=== PATIENT | male | born 1950 | race Caucasian/White ===

== ENCOUNTER 2019-01-18 15:01 | Emergency (ER) | payer MEDICARE, SELFPAY ==
[2019-01-18 15:11] VITALS: BP 167/83; PULSE 68; RESP 15; TEMP 35.8; O2SAT 98; BMI 28.7
[2019-01-18 16:18] LABS: RBC Urine 1-5/HPF (0-5/HPF); WBC Urine 10-30/HPF (0-5/HPF)
[2019-01-18 16:19] LABS: Amorphous Sediment Urine 2+; Bacteria Urine Few (2-10); Culture Indicated Urine Specimen Cultured; Hyaline Casts Urine 0-1/LPF; Mucus Urine 1+ (Negative); Squamous Epithelial Cell Urine 0-1 /HPF (0-5/HPF)
--- NOTE | 2019-01-18 16:24 | ED.MALEGU ---
HPI - Male Genitourinary <KIMBERLY Knutson - Last Filed: 01/19/19 01:31> General Chief complaint: Urogenital-Male Stated complaint: Having groin pain, nausea Time Seen by Provider: 01/18/19 15:12 Source: patient and family Mode of arrival: ambulatory Limitations: no limitations History of Present Illness HPI Narrative: This is a pleasant 69-year-old male, nonsmoker, presents with his spouse to ED with a chief complaint of right groin discomfort. The patient reports has history of several kidneys stones in size of 2 mm in the past and has been followed with [facility] urologist. He had lithotripsy procedure done for the kidney stone. He reports the right groin discomfort has been going on for last 9 months intermittently. However, today he noticed the pain became sharper and more severe with nausea while he was walking around [place] [employer]. The pain then subsided and recurred a couple more times. However, at this time the pain as significantly decreased and rates it as 1/10. The patient denies urinary symptoms, fever, chills, vomiting, decreased appetite, any peritoneal signs, swelling in right groin, pain in the scrotum, redness/swelling to his scrotum or testes. He had taken ibuprofen before coming in to ER. The patient reports he currently is making arrangements to follow with neurologist for his prolonged right groin pain. He had several CT scan done for his kidney stones in the last 1 was done about 2 months ago with blood test including kidney function test by his primary care physician at [facility]. Related Data Previous Rx's Medication Instructions Recorded levofloxacin [Levaquin] 750 mg PO DAILY #4 tab 01/18/19 Allergies Allergy/AdvReac Type Severity Reaction Status Date / Time No Known Drug Allergies Allergy Verified 01/18/19 15:11 Review of Systems <KIMBERLY Knutson - Last Filed: 01/19/19 01:31> Review of Systems General: The HPI HEENT: Denies sinus pain, ear pain, sore throat, difficulty swallowing, dizziness. Respiratory: Denies dyspnea, cough, wheezing, hemoptysis, sputum. Cardiovascular: Denies chest pain, palpitations, orthopnea, edema. Gastrointestinal: See HPI : See HPI Musculoskeletal: Denies weakness, joint pain or bony pain. Skin: Denies rash, skin lesions, or other. Neurologic: Denies weakness, headache, numbness, change in speech, confusion, seizures, incoordination. Psychiatric: No concerning psychosocial issues. 12-point review of systems is negative except for those stated above. PFSH <KIMBERLY Knutson - Last Filed: 01/19/19 01:31> Medical History Kidney stone (Acute) Surgical History (Updated 01/19/19 @ 01:17 by KIMBERLY Knutson) H/O lithotripsy (Acute) Social History (Updated 01/19/19 @ 01:18 by KIMBERLY Knutson) Smoking Status: Never smoker substance use type: marijuana Social History (Updated 01/19/19 @ 01:18 by KIMBERLY Knutson) Smoking Status: Never smoker substance use type: marijuana Exam <KIMBERLY Knutson - Last Filed: 01/19/19 01:31> Narrative Exam Narrative: GEN: Alert, oriented x 3, well appearing and nourished, and in no acute distress. Head: Normal cephalic, atraumatic. No scalp or temporal tenderness, palpable mass or rash. EYES: Pupils are equal, round, and reactive to light and accommodation. Extraocular muscles are intact bilaterally. There is no subconjunctival hemorrhage, exudate and sclera non-icteric. ENT: Nose without bleeding, purulent discharge. Mucous membrane moist, no mucosal lesion. Throat without erythema, tonsillar hypertrophy or exudate. Uvula in midline, airway patent. Neck: Trachea in midline. No JVD, non-tender without lymphadenopathy. No masses or thyroid megaly. Supple, non-tender and meningeal signs. CARDIAC: Normal regular rate and rhythm without murmurs, gallops, or rubs. No chest wall tenderness. No peripheral edema, cyanosis or pallor. Capillary refill is less than 2 seconds. RESPIRATORY: Lungs are cleat to auscultate bilaterally. No cough, wheezes, rales, or rhonchi. No stridor, respiratory distress, increase work of breathing, or accessary muscle used. ABD: Abdomen soft, nontender and non-distended. No guarding or rebound tenderness to palpate. Bowel sounds are normal in all 4 quadrants. There is no palpable masses, groin bulges or organomegaly. EXT: Full painless ROM of all extremities with no loss of sensation, strength, effusion or edema. SKIN: Warm, dry, normal color for patient. No erythema, lesions or rash. BACK: Nontender without deformity or crepitance. No flank tenderness. NEUROLOGICAL: Alert and oriented to place, time and person. Sensation and motor function intact bilaterally. No facial droops, dysphasia. PSYCHIATRIC: Good judgement and reason, without hallucinations, abnormal affect or abnormal behaviors during the examination. Initial Vital Signs Initial Vital Signs: Vital Signs Temperature 96.5 F L 01/18/19 15:11 Pulse Rate 68 01/18/19 15:11 Respiratory Rate 15 01/18/19 15:11 Blood Pressure 167/83 H 01/18/19 15:11 Pulse Oximetry 98 01/18/19 15:11 <Leslie Rosenberg DO - Last Filed: 01/19/19 08:40> Initial Vital Signs Initial Vital Signs: Vital Signs Temperature 96.5 F L 01/18/19 15:11 Pulse Rate 68 01/18/19 15:11 Respiratory Rate 15 01/18/19 15:11 Blood Pressure 167/83 H 01/18/19 15:11 Pulse Oximetry 98 01/18/19 15:11 Course <KIMBERLY Knutson - Last Filed: 01/19/19 01:31> Orders Ordered: Discontinued Medications Levofloxacin (Levaquin) 750 mg PO NOW ONE Stop: 01/18/19 16:30 Last Admin: 01/18/19 16:48 Dose: 750 mg Vital Signs - 8 hr 01/18/19 15:11 Temperature 96.5 F L Pulse Rate 68 Respiratory Rate 15 Blood Pressure 167/83 H Pulse Oximetry 98 <Leslie Rosenberg DO - Last Filed: 01/19/19 08:40> Orders Ordered: Discontinued Medications Levofloxacin (Levaquin) 750 mg PO NOW ONE Stop: 01/18/19 16:30 Last Admin: 01/18/19 16:48 Dose: 750 mg Vital Signs - 8 hr 01/18/19 15:11 Temperature 96.5 F L Pulse Rate 68 Respiratory Rate 15 Blood Pressure 167/83 H Pulse Oximetry 98 MDM - Male Genitourinary <KIMBERLY Knutson - Last Filed: 01/19/19 01:31> Differential Diagnosis Likely urinary tract infection and other (kidney stone, appendicitis, inguinal hernia) Medical Records Attestation: I reviewed the patient's medical records. Lab Data Attestation: I reviewed the patient's lab results. Lab Results 01/18/19 Range/Units 16:00 Urine RBC 1-5/hpf (0-5/HPF) Urine WBC 10-30/hpf H (0-5/HPF) Ur Squamous Epith Cells 0-1 /hpf (0-5/HPF) Amorphous Sediment 2+ Urine Bacteria Few (2-10) H (None) Hyaline Casts 0-1/lpf (None) Urine Mucus 1+ H (Negative) Ur Culture Indicated? Specimen cultured Urine Dip Bedside Urine Glucose Negative Bedside Urine Bilirubin + 1 Bedside Urine Ketone +/- 5 Urine Specific Kegley 1.030 Bedside Urine Occult Blood + Bedside Urine pH 5.5 Bedside Urine Protein ++ 100 Bedside Urine Urobilinogen +/- 1mg Bedside Urine Nitrite - Negative Bedside Urine Leukocytes +++ [address] [facility] Narrative Medical decision making narrative: This is a pleasant 69 year old gentleman who presents with his spouse to ED with chief complaint of right groin pain and nausea. He has been having this right groin pain for last 9 months but today the severity and pain character was more intense. Patient has history of several kidney stones with elective lithotripsy. He reports his kidney stone size was about 2 mm. He denies prior urinary symptoms such as urgency,frequency, hematuria and burning. The patient was concerned if this pain is due to appendicitis. The patient did not exhibit peritoneal signs, rebound tenderness, decreased appetite, fever, chills. The UA was obtained and it showed occult blood, urine bilirubin, ketones, protein, and many leukocytes esterase. The microscopic urine test shows urine WBC, bacteria and mucus and being cultured at this time. The patient defers blood test for CBC and chemistry including kidney function test and also CT test for kidney stone. The patient states that he had recent blood tests done as well as CT scan and he will follow with his primary care physician for re-evaluation and to follow with urologist as planned. We discussed red flag symptoms for appendicitis such as increasing abdominal pain localized to right lower quadrant, fever, chills, nausea, vomiting, decreased appetite. Also he was to monitor bulging in the right groin area for hernia, increasing scrotal or testicular pain/swelling, redness and return to ED for re-evaluation. The patient was medicated with Levaquin 750 mg p.o. prior to leaving the ER and prescription for 4 more days had been provided. Black box warning for tendinitis was reviewed with the patient. The patient was informed will be contacted if the medication needs change her urine culture. All questions were answered and the patient and spouse agree with the treatment plan. <Leslie Walker Rosenberg, DO - Last Filed: 01/19/19 08:40> Lab Data Lab Results 01/18/19 Range/Units 16:00 Urine RBC 1-5/hpf (0-5/HPF) Urine WBC 10-30/hpf H (0-5/HPF) Ur Squamous Epith Cells 0-1 /hpf (0-5/HPF) Amorphous Sediment 2+ Urine Bacteria Few (2-10) H (None) Hyaline Casts 0-1/lpf (None) Urine Mucus 1+ H (Negative) Ur Culture Indicated? Specimen cultured Urine Dip Bedside Urine Glucose Negative Bedside Urine Bilirubin + 1 Bedside Urine Ketone +/- 5 Urine Specific Kegley 1.030 Bedside Urine Occult Blood + Bedside Urine pH 5.5 Bedside Urine Protein ++ 100 Bedside Urine Urobilinogen +/- 1mg Bedside Urine Nitrite - Negative Bedside Urine Leukocytes +++ 500 Esterase Discharge Plan Departure Patient Disposition: Home Clinical Impression: Urinary tract infection Discharge Date/Time: 01/18/19 17:04 Interventions: ED Discharge Assessment Last Done: 01/18/19 17:04 Instructions: DI for Urinary Tract Infection (UTI) Activity Restrictions/Additional Instructions: You have been diagnosed with [bladder infection. Your urine test indicates WBC in urine and a few bacteria. Your urine is being cultured at this time and you'll be contacted if there medication changes is needed]. What to do: *Take your medications as directed. It should be a once a day dose. As we discussed, there is a tendonitis to monitor as a black box warning. *Follow up with your primary care provider in 2-3 days, call for an appointment. Let them know you were seen in the ED and that we asked you to be seen in follow up. As you deferred CT and blood test, it is very important to f/u with your PCP and urologist. *Return to ED if you have any new, worsening, or concerning symptoms, such as [worsening pain, swelling in your right groin area, unable to tolerate fluid, fever, chills, chest pain, breathing difficulty, dizziness, unable to void, any acute concerns]. Prescriptions: New levofloxacin [Levaquin] 750 mg tablet 750 mg PO DAILY Qty: 4 RF: 0 <Leslie Rosenberg DO - Last Filed: 01/19/19 08:40> Cosign ED Attending Cosignature Attestation: I was immediately available in the department for consultation. This documentation has been reviewed and I agree with assessment and plan. Supervised by Leslie Rosenberg DO
[2019-01-18] MEDS: levoFLOXacin 250 MG TABLET 750 MG PO (16:48)
[2019-01-18 16:49] VITALS: BP 152/81; PULSE 58; RESP 15; O2SAT 95
== END 2019-01-18 17:04 | disposition home or self-care (01) ==
PROVIDERS: Emergency Provider Nurse Practitioner Family; PCP Naturopath
DX: N39.0 Urinary tract infection, site not specified (principal)
CPT/HCPCS: 81003; 81015; 87086; 99283

== ENCOUNTER 2019-07-10 10:24 | Day surgery (SDC) | payer MEDICARE, SELFPAY ==
[2019-07-10] VITALS (7 sets, daily range): BP systolic 119–156; BP diastolic 72–89; PULSE 62–67; RESP 12–17; TEMP 36.4–36.6; O2SAT 94–100; BMI 27.8
[2019-07-10] MEDS: LACTATED RINGERS 1,000 ML 42 ML IV (10:38)
--- NOTE | 2019-07-10 10:58 | PM.PREOP ---
Pre-operative Note Interval Note History & Physical reviewed/Exam performed by Physician: Yes Changes to H&P: No H&P completed within 30 days and has changed as indicated here:: History and physical examination on file.
[2019-07-10] MEDS: CEFAZOLIN 1 GM/50 ML FROZ.PIGGY IV (11:35)
--- NOTE | 2019-07-10 11:55 | SUR.OPER ---
Lithotomy on padded OR bed, head on pillow, arms secured on padded arm boards at <90 degrees abduction. Legs secured in padded yellow fins stirrups.
--- NOTE | 2019-07-10 12:00 | SUR.OPER ---
GLASSES TO PACU IN LABELED BAG WITH PATIENT
--- NOTE | 2019-07-10 12:25 | PM.OP.1 ---
Operative Date/Time/Diagnoses Date of procedure: 07/10/19 Time of procedure: 12:25 Pre-op diagnosis: Retained right ureter Right renal calculi Post-op diagnosis: same Procedure & Clinicians Procedure: 1. Cystoscopy. 2. Right ureteral stent removal. 3. Removal bladder calculi. Same procedure as scheduled: No Indications: 1. Retained right ureteral stent. 2. Bladder calculi. Surgeon: Haim Monk Click Yes if Unassisted: Yes Anesthesia Type: General Operative Notes Findings: 1. Retained right ureteral stent. 2. Multiple fragments of calculi at bladder floor. Closure Type: not applicable Specimen(s): other (Urinary tract calculi from bladder floor.) Estimated Blood Loss (mL): 0 Blood products transfused: none Tourniquet time (min): 0 Procedure in detail: The patient was positioned supine and administered general anesthesia. The lower abdomen genitalia and groin were then prepped and draped in sterile fashion and he was positioned in semi lithotomy. A 22 Amharic panendoscope was then passed in the lower urinary tract. Multiple fragments of calculi were irrigated from the bladder that had been lying dependently in its base. The stone fragments were sent as specimen for crystallographic analysis. Using a foreign body grasper the stent was then engaged and removed without incident. The patient was then repositioned in supine, was awakened, and transferred to a gurney in stable condition. He was then transported to recovery in stable condition. Post-operative Condition: stable Disposition: PACU Plan for aftercare: Discharge home. Post operative appointment 6 weeks with KUB and metabolic stone risk evaluation.
[2019-07-10] MEDS: FUROSEMIDE 40 MG/4 ML VIAL 20 MG IV (12:29)
[2019-07-14 09:37] LABS: Specimen Source Right Ureter
== END 2019-07-10 13:10 | disposition home or self-care (01) ==
PROVIDERS: PCP Naturopath; Visit Provider Specialist
PROC: (CPT 52310; principal; 2019-07-10 11:15)
DX: N21.0 Calculus in bladder (principal); Z46.6 Encounter for fitting and adjustment of urinary device
CPT/HCPCS: 52310; 82365; J1940; J3010

== ENCOUNTER → 2020-12-29 09:23 | Outpatient (CLI) | payer MEDICARE, SELFPAY ==
[2020-12-29 20:11] LABS: BUN Creatinine Ratio 16.4 (6-22); Blood Urea Nitrogen 20 mg/dL (9-20); Calcium 9.8 mg/dL (8.4-10.2); Carbon Dioxide 26 mmol/L (22-32); Chloride 106 mmol/L (98-107); Estimated Glomerular Filt Rate 58.4 mL/min (>60); Glucose 99 mg/dL (80-110); HEMOLYSIS < 15 (0-50); Potassium 3.9 mmol/L (3.4-5.1); Sodium 139 mmol/L (137-145)
[2020-12-29 20:27] LABS: Creatinine Urine Random 158.6 mg/dL
[2020-12-29 20:33] LABS: Protein (Total) Urine Random < 5 mg/dL (0-12); Protein Creatinine Ratio Urine 0.03 GRAM/24H
== END ==
PROVIDERS: PCP Family Medicine; Visit Provider Student in an Organized Health Care Education/Training Program
DX: N05.0 Unspecified nephritic syndrome with minor glomerular abnormality (principal); R80.9 Proteinuria, unspecified; N05.9 Unspecified nephritic syndrome with unspecified morphologic changes
CPT/HCPCS: 80048; 82570; 84156

== ENCOUNTER → 2021-01-09 12:11 | Outpatient (CLI) | payer MEDICARE, SELFPAY ==
[2021-01-09 21:14] LABS: COVID19 - ORCAS (NP or Nasal) Negative (Negative)
== END ==
PROVIDERS: PCP Family Medicine; Visit Provider Family Medicine
DX: Z20.822 Contact with and (suspected) exposure to COVID-19 (principal)
CPT/HCPCS: U0003

== ENCOUNTER → 2021-09-05 12:03 | Outpatient (CLI) | payer MEDICARE, SELFPAY ==
[2021-09-05 19:10] LABS: Hematocrit 46.9 % (41-53); Hemoglobin 16.5 g/dL (13.5-17.5)
[2021-09-05 19:11] LABS: BUN Creatinine Ratio 15.2 (6-22); Blood Urea Nitrogen 21 mg/dL (9-20); Calcium 9.8 mg/dL (8.4-10.2); Carbon Dioxide 29 mmol/L (22-32); Chloride 105 mmol/L (98-107); Estimated Glomerular Filt Rate 50.5 mL/min (>60); Glucose 107 mg/dL (80-110); HEMOLYSIS < 15 (0-50); Potassium 4.2 mmol/L (3.4-5.1); Sodium 140 mmol/L (137-145)
[2021-09-05 20:08] LABS: Creatinine Urine Random 170.8 mg/dL
[2021-09-05 20:14] LABS: Protein (Total) Urine Random < 5 mg/dL (0-12); Protein Creatinine Ratio Urine 0.02 GRAM/24H
[2021-09-07 08:37] LABS: Parathyroid Hormone Int 49 pg/mL (15-65)
== END ==
PROVIDERS: PCP Family Medicine; Visit Provider Student in an Organized Health Care Education/Training Program
DX: N05.9 Unspecified nephritic syndrome with unspecified morphologic changes (principal); D64.9 Anemia, unspecified; N25.81 Secondary hyperparathyroidism of renal origin; R80.9 Proteinuria, unspecified
CPT/HCPCS: 80048; 82570; 83970; 84156; 85014; 85018

== ENCOUNTER → 2021-11-06 10:07 | Outpatient (CLI) | payer MEDICARE, SELFPAY ==
[2021-11-06 19:09] LABS: Add Manual Diff / Slide Review NO; Basophils Absolute Auto 100 /uL (0-100); Basophils Percent Auto 0.8 % (0-2); Eosinophils Absolute Auto 300 /uL (0-450); Eosinophils Percent Auto 4.1 % (2-4); Hematocrit 47.6 % (41-53); Hemoglobin 16.5 g/dL (13.5-17.5); Lymphocytes Absolute Auto 1900 /uL (1100-4500); Lymphocytes Percent Auto 25.3 % (25-40); Mean Corpuscular HGB Conc 34.7 % (30-36); Mean Corpuscular Hemoglobin 31.3 PG (26-34); Mean Corpuscular Volume 90.3 fL (80-100); Monocytes Absolute Auto 900 /uL (0-900); Monocytes Percent Auto 11.4 % (3-14); Neutrophils Absolute Auto 4400 /uL (1500-7000); Neutrophils Percent Auto 58.4 % (50-75); Platelet Count 184 X10^3/uL (150-400); Red Blood Cell Count 5.27 X10^6/uL (4.5-5.9); Red Cell Distribution Width 14.2 % (11.6-14.8); White Blood Cell Count 7.5 X10^3/uL (4.5-11.0)
[2021-11-06 19:24] LABS: Cholesterol 148 mg/dL (140-199); HDL Cholesterol 54 mg/dL (40-60); LDL Cholesterol Calculated 72 mg/dL (<100); Triglycerides 108 mg/dL (35-150)
[2021-11-06 19:51] LABS: Prostate Specific Antigen Scrn 1.38 ng/mL (0.1-4.0)
== END ==
PROVIDERS: PCP Family Medicine; Visit Provider Family Medicine
DX: I25.810 Atherosclerosis of coronary artery bypass graft(s) without angina pectoris (principal); Z12.5 Encounter for screening for malignant neoplasm of prostate; N18.31 Chronic kidney disease, stage 3a; D63.1 Anemia in chronic kidney disease; E78.00 Pure hypercholesterolemia, unspecified; I10 Essential (primary) hypertension; K22.70 Barrett's esophagus without dysplasia; N40.1 Benign prostatic hyperplasia with lower urinary tract symptoms; R35.1 Nocturia; R55 Syncope and collapse; Z95.1 Presence of aortocoronary bypass graft
CPT/HCPCS: 80061; 85025; G0103

== ENCOUNTER → 2022-05-15 11:42 | Outpatient (CLI) | payer MEDICARE, SELFPAY ==
[2022-05-15 19:32] LABS: Hematocrit 46.7 % (41-53); Hemoglobin 16.2 g/dL (13.5-17.5)
[2022-05-15 19:47] LABS: BUN Creatinine Ratio 15.7 (6-22); Blood Urea Nitrogen 20 mg/dL (9-20); Calcium 9.6 mg/dL (8.4-10.2); Carbon Dioxide 30 mmol/L (22-32); Chloride 105 mmol/L (98-107); Estimated Glomerular Filt Rate 59 mL/min (>60); Glucose 92 mg/dL (80-110); HEMOLYSIS < 15 (0-50); Sodium 145 mmol/L (137-145)
[2022-05-15 19:51] LABS: Creatinine Urine Random 227.5 mg/dL
[2022-05-15 20:08] LABS: Protein (Total) Urine Random < 5 mg/dL (0-12); Protein Creatinine Ratio Urine < 0.02 GRAM/24H
[2022-05-17 06:36] LABS: Parathyroid Hormone Int 37 pg/mL (15-65)
== END ==
PROVIDERS: PCP Family Medicine; Visit Provider Student in an Organized Health Care Education/Training Program
DX: D64.9 Anemia, unspecified (principal); N05.9 Unspecified nephritic syndrome with unspecified morphologic changes; N25.81 Secondary hyperparathyroidism of renal origin; R80.9 Proteinuria, unspecified
CPT/HCPCS: 80048; 82570; 83970; 84156; 85014; 85018

== ENCOUNTER → 2022-06-14 13:33 | Outpatient (CLI) | payer MEDICARE, SELFPAY ==
[2022-06-14 20:19] LABS: TSH w/ Reflex to FT4 0.73 uIU/mL (0.47-4.68)
== END ==
PROVIDERS: PCP Family Medicine; Visit Provider Family Medicine
DX: I10 Essential (primary) hypertension (principal); R55 Syncope and collapse
CPT/HCPCS: 84443

== ENCOUNTER → 2022-11-26 10:54 | Outpatient (CLI) | payer MEDICARE, SELFPAY ==
[2022-11-26 19:50] LABS: Add Manual Diff / Slide Review NO; Basophils Absolute Auto 100 /uL (0-100); Basophils Percent Auto 0.8 % (0-2); Eosinophils Absolute Auto 300 /uL (0-450); Eosinophils Percent Auto 4.2 % (2-4); Hematocrit 48.5 % (41-53); Hemoglobin 16.7 g/dL (13.5-17.5); Lymphocytes Absolute Auto 1900 /uL (1100-4500); Lymphocytes Percent Auto 25.4 % (25-40); Mean Corpuscular HGB Conc 34.5 % (30-36); Mean Corpuscular Hemoglobin 30.6 PG (26-34); Mean Corpuscular Volume 88.7 fL (80-100); Monocytes Absolute Auto 800 /uL (0-900); Monocytes Percent Auto 10.9 % (3-14); Neutrophils Absolute Auto 4500 /uL (1500-7000); Neutrophils Percent Auto 58.7 % (50-75); Platelet Count 200 X10^3/uL (150-400); Red Blood Cell Count 5.46 X10^6/uL (4.5-5.9); Red Cell Distribution Width 14.7 % (11.6-14.8); White Blood Cell Count 7.6 X10^3/uL (4.5-11.0)
[2022-11-26 19:55] LABS: Blood Urea Nitrogen 17 mg/dL (9-20); Calcium 9.3 mg/dL (8.4-10.2); Carbon Dioxide 26 mmol/L (22-32); Chloride 106 mmol/L (98-107); Cholesterol 145 mg/dL (140-199); Glucose 101 mg/dL (80-110); HDL Cholesterol 54 mg/dL (40-60); HEMOLYSIS 16 (0-50); LDL Cholesterol Calculated 69 mg/dL (<100); Potassium 4.4 mmol/L (3.4-5.1); Triglycerides 109 mg/dL (35-150)
[2022-11-26 20:10] LABS: BUN Creatinine Ratio 11.6 (6-22); Estimated Glomerular Filt Rate 50 mL/min (>60); Sodium 141 mmol/L (137-145)
== END ==
PROVIDERS: PCP Family Medicine; Visit Provider Family Medicine
DX: N13.5 Crossing vessel and stricture of ureter without hydronephrosis (principal); N18.31 Chronic kidney disease, stage 3a; D63.1 Anemia in chronic kidney disease; E78.2 Mixed hyperlipidemia; I10 Essential (primary) hypertension; I25.810 Atherosclerosis of coronary artery bypass graft(s) without angina pectoris; Z87.898 Personal history of other specified conditions
CPT/HCPCS: 80048; 80061; 85025

== ENCOUNTER → 2023-03-07 09:31 | Outpatient (CLI) | payer MEDICARE, SELFPAY ==
[2023-03-07 19:55] LABS: Prostate Specific Antigen 2.48 ng/mL (0.10-4.00)
== END ==
PROVIDERS: PCP Family Medicine; Visit Provider Specialist
DX: N40.1 Benign prostatic hyperplasia with lower urinary tract symptoms (principal); R35.1 Nocturia
CPT/HCPCS: 84153

== ENCOUNTER 2023-04-01 06:37 | Day surgery (SDC) | payer MEDICARE, SELFPAY ==
[2023-03-27 12:10] VITALS: BMI 28.7
[2023-04-01] VITALS (7 sets, daily range): BP systolic 120–159; BP diastolic 51–83; PULSE 50–65; RESP 13–21; TEMP 36.2–36.7; O2SAT 93–98; BMI 28.3
[2023-04-01] MEDS: LACTATED RINGERS 1,000 ML 42 ML IV (07:08)
--- NOTE | 2023-04-01 07:38 | PM.PREOP ---
Pre-operative Note Interval Note History & Physical reviewed/Exam performed by Physician: Yes Changes to H&P: No
[2023-04-01] MEDS: ACETAMINOPHEN IV 1,000 MG/100 ML VIAL 400 MG IV (07:39)
--- NOTE | 2023-04-01 07:39 | PM.PREOP ---
Pre-operative Note Interval Note History & Physical reviewed/Exam performed by Physician: Yes Changes to H&P: No
[2023-04-01] MEDS: CEFAZOLIN 2 GM/100 ML PREMIX 100 ML IV (08:00)
--- NOTE | 2023-04-01 08:02 | SUR.OPER ---
Lithotomy on padded OR bed, head on pillow, left arm secured on padded arm board at <90 degrees abduction, right arm padded and tucked. Legs secured in padded yellow fins stirrups.
[2023-04-01] MEDS: LACTATED RINGERS 1,000 ML 100 ML IV (09:58)
--- NOTE | 2023-04-01 10:27 | PM.OP.1 ---
Operative Date/Time/Diagnoses Date of procedure: 04/01/23 Time of procedure: 09:45 Pre-op diagnosis: 1. Bladder calculi (12) 2. Severe lower urinary tract symptoms. Procedure & Clinicians Procedure: 1. Laser cystolitholapaxy. Complexity modifier should be applied to this case as length exceeded 150% of usual. Same procedure as scheduled: Yes Indications: 1. Multiple bladder calculi (12). 2. Severe lower urinary tract symptoms. Surgeon: Haim Monk Click Yes if Unassisted: Yes Anesthesia Type: General Operative Notes Findings: 1. Urethra-normal caliber without annular stricture or lesion. 2. External sphincter coapted with normal overlying urothelium and vascularity. 3. Prostate-moderately obstructing lateral lobe in very high median lobe bar. 4. Bladder-1 to 2+ trabeculation. Normal ureteral orifices bilaterally. Multiple calculi lying dependently in the bladder base. Closure Type: not applicable Specimen(s): other (Stone pumice and fragments) Applied: catheter (18 [place]ankan silicone catheter.) Estimated Blood Loss (mL): 0 Blood products transfused: none Procedure in detail: The patient was positioned in supine and was administered general anesthesia. He was then repositioned in semi lithotomy in the lower abdomen, genitalia, and groin were then prepped and draped in sterile fashion. The 22 [place]ankan laser cystoscope was then passed and lower urinary tract with the findings as described above. A 550 micron laser fiber was selected. The patient and all operating room personnel were fitted with laser safety eyewear. Laser lithotripsy was then commenced. Each individual stone was painstakingly fragmented and then the larger fragments were further treated with laser to a size readily irrigated able from the bladder lumen. The [facility] evacuator was then used to irrigate the almost and fragments. Multiple irrigations and reinspection were undertaken. A few small pieces of pumice were adherent to the urothelium otherwise the stone volume was cleared with hydrostatic means. The bladder was then left partially filled in the laser cystoscope was removed. An 18 [place]an silicone catheter was then advanced in the bladder, the balloon inflated 10 cc and placed to gravity drainage. The patient was then repositioned in supine, was awakened, transferred to [facility], and transported recovery in stable condition. Complications: none Post-operative Condition: stable Disposition: PACU Plan for aftercare: Discharge home.
[2023-04-09 10:22] LABS: Ca oxalate dihydrate 40 % (.); Ca oxalate monohydr 50 % (.); Hydroxyapatite 10 % (.)
== END 2023-04-01 10:49 | disposition home or self-care (01) ==
PROVIDERS: PCP Family Medicine; Referring Provider Specialist; Visit Provider Specialist
PROC: 0TCB8ZZ Extirpation of Matter from Bladder, Via Natural or Artificial Opening Endoscopic (ICD-10-PCS; CPT 52318; principal; 2023-04-01 07:45)
DX: N21.0 Calculus in bladder (principal); N40.1 Benign prostatic hyperplasia with lower urinary tract symptoms; N13.8 Other obstructive and reflux uropathy
CPT/HCPCS: 52318; 82365; J0131; J0690; J1100; J2405; J2704; J3010

== ENCOUNTER → 2023-09-19 13:00 | Outpatient (CLI) | payer MEDICARE, SELFPAY ==
[2023-09-23 19:36] LABS: Fecal Immunochemical Test Negative (Negative)
== END ==
PROVIDERS: PCP Family Medicine; Visit Provider Family Medicine
DX: Z12.11 Encounter for screening for malignant neoplasm of colon (principal)
CPT/HCPCS: 82274

== ENCOUNTER → 2023-10-24 09:26 | Outpatient (CLI) | payer MEDICARE, SELFPAY ==
[2023-10-24 20:26] LABS: BUN Creatinine Ratio 15.3 (6-22); Blood Urea Nitrogen 20 mg/dL (9-20); Calcium 9.5 mg/dL (8.4-10.2); Carbon Dioxide 25 mmol/L (22-32); Chloride 110 mmol/L (98-107); Cholesterol 129 mg/dL (140-199); Estimated Glomerular Filt Rate 57 mL/min (>60); Glucose 103 mg/dL (80-110); HDL Cholesterol 49 mg/dL (40-60); HEMOLYSIS < 15 (0-50); LDL Cholesterol Calculated 56 mg/dL (<100); Potassium 4.2 mmol/L (3.4-5.1); Sodium 143 mmol/L (137-145); Triglycerides 118 mg/dL (35-150)
[2023-10-24 20:54] LABS: Prostate Specific Antigen 1.77 ng/mL (0.10-4.00)
== END ==
PROVIDERS: PCP Family Medicine; Visit Provider Family Medicine
DX: E78.2 Mixed hyperlipidemia (principal); N40.1 Benign prostatic hyperplasia with lower urinary tract symptoms; I12.9 Hypertensive chronic kidney disease with stage 1 through stage 4 chronic kidney disease, or unspecified chronic kidney disease; I25.810 Atherosclerosis of coronary artery bypass graft(s) without angina pectoris; N18.9 Chronic kidney disease, unspecified; D63.1 Anemia in chronic kidney disease; N13.8 Other obstructive and reflux uropathy
CPT/HCPCS: 80048; 80061; 84153

== ENCOUNTER 2023-11-27 08:13 | Day surgery (SDC) | payer MEDICARE, SELFPAY ==
[2023-11-25 12:09] VITALS: BMI 29.2
--- NOTE | 2023-11-27 | PATH_ITS ---
[facility] Accession Number: [id number] No. of containers..01 Tissue . 01 Material submitted: . esophagus, E-G Junction - GE JUNCTION BIOPSY . 01 Diagnosis: GE JUNCTION BIOPSY: Proximal gastric-type glandular mucosa with mild chronic inflammation. No goblet cell metaplasia, dysplasia, or malignancy identified. [facility] 12/03/2023 1516 Local . 01 Electronically signed: . Merrick Powell MD, Pathologist NPI- [id number] . 01 Gross description: . Received in formalin with two patient identifiers and GE junction, are multiple lozano soft tissue fragments aggregating to 0.9 x 0.4 x 0.1 cm. Filtered and submitted entirely in A1. ([id number]) /MRV 12/03/2023 1516 Local . 01 Pathologist provided ICD-10: K20.90 . 01 CPT . 211640 Specimen Comment: A courtesy copy of this report has been sent to [phone] Performed at: [address] [id number] MD Merrick Powell MD Phone: [phone]
--- NOTE | 2023-11-27 07:37 | SUR.PREOP ---
See new order for EKG from Dr Cornejo.
--- NOTE | 2023-11-27 08:46 | P.OP_ITS ---
Operative Date/Time/Diagnoses Date of procedure: 11/27/23 Time of procedure: 08:47 Pre-op diagnosis: Umbilical hernia History of Wilkinson's esophagus Procedure & Clinicians Procedure: Open umbilical hernia repair Esophagogastroduodenoscopy Same procedure as scheduled: Yes Indications: Symptomatic reducible umbilical hernia History of Wilkinson's esophagus Surgeon: Omer Estrada Presentation Designer: Oswaldo Jean Anesthesia Type: General Operative Notes Findings: gastroparesis 4 cm fascial defect Specimen(s): other (GE junction) Estimated Blood Loss (mL): 30 Procedure in detail: Patient was brought to the operating room placed supine on the table. Bilateral lower extremity compression devices were applied. General anesthesia was induced and they were intubated with an endotracheal tube. They received 2 g of Ancef prior to skin incision. They were prepped and draped in sterile fashion. A time-out was performed. A bite block was placed. the scope was inserted into the mouth and advanced through the esophagus and into the stomach. There was a large volume of gastric content within the stomach. The pylorus was intubated and the duodenum was examined to the 2nd portion. The scope was then withdrawn into the stomach and was retroflexed. The stomach was decompressed and scope was withdrawn slowly through the esophagus. The GE junction was biopsied with forceps. The scope was then slowly withdrawn. They were then prepped and draped in sterile fashion. A curvilinear incision was made inferior to the umbilicus. The subcutaneous tissues were divided. The umbilical hernia was identified and the hernia sac was dissected off the umbilical skin and circumferentially off of the fascia defect. The hernia sac was sharply opened and contained viable omentum. The omentum was reduced back into the abdomen. Using blunt dissection I carefully carefully freed the hernia sac from beneath the fascia defect in order to accomodate the mesh. The fascia defect was 4 cm in maximal diameter. A Bard Ventralex ST hernia patch 8 cm was inserted beneath the fascia defect and above the peritoneum in a sublay position. The mesh was anchored in multiple locations using Ethibond suture to the fascia and the fascial defect was closed over the mesh. The umbilical skin was tacked to the subcutaneous tissues and then the remainder of the subcutaneous tissues were reapproximated using 3 0 Vicry,l skin closed with 4 0 Monocryl followed by the application of Dermabond and Steri-Strips. Sponge instrument count at the end of the operation was correct. Patient tolerated procedure well was extubated and transferred to postoperative care unit in stable condition. Complications: none Post-operative Condition: stable Disposition: same day surgery
--- NOTE | 2023-11-27 08:46 | PM.PREOP ---
Pre-operative Note Interval Note History & Physical reviewed/Exam performed by Physician: Yes Changes to H&P: No
[2023-11-27] MEDS: CEFAZOLIN 2 GM/100 ML PREMIX 100 ML IV (08:59)
--- NOTE | 2023-11-27 09:16 | SUR.OPER ---
Supine on padded OR bed, head on pillow, arms secured on padded arm boards at <90 degrees abduction, legs uncrossed, safety belt at thigh, tape over blanket over lower legs.
[2023-11-27] MEDS: BUPIVACAINE 0.25% (PF) VIAL 30 ML INJ (09:25)
[2023-11-27 09:52] VITALS: BP 164/84; PULSE 66; RESP 20; TEMP 36.4; O2SAT 95
[2023-11-27 09:57] VITALS: BP 156/77; PULSE 61; RESP 15; TEMP 36.4; O2SAT 95
[2023-11-27 10:02] VITALS: BP 141/58; PULSE 59; RESP 20; TEMP 36.3; O2SAT 94
[2023-11-27 10:08] VITALS: BP 145/64; PULSE 56; RESP 15; TEMP 36.3; O2SAT 96
== END 2023-11-27 11:06 | disposition home or self-care (01) ==
PROVIDERS: PCP Family Medicine; Referring Provider Surgery; Visit Provider Surgery
PROC: (CPT 49593; principal; 2023-11-27 08:45)
PROC: 0DJ08ZZ Inspection of Upper Intestinal Tract, Via Natural or Artificial Opening Endoscopic (ICD-10-PCS; CPT 43235; 2023-11-27 08:45)
DX: K42.9 Umbilical hernia without obstruction or gangrene (principal); Z87.19 Personal history of other diseases of the digestive system; K21.9 Gastro-esophageal reflux disease without esophagitis; Z95.1 Presence of aortocoronary bypass graft; I25.10 Atherosclerotic heart disease of native coronary artery without angina pectoris; N18.30 Chronic kidney disease, stage 3 unspecified; K20.90 Esophagitis, unspecified without bleeding
CPT/HCPCS: 49593; 43239; 93005; J0330; J0690; J1100; J2405; J2704; J3010

== ENCOUNTER → 2024-08-05 09:25 | Outpatient (CLI) | payer MEDICARE, SELFPAY ==
[2024-08-05 19:24] LABS: Add Manual Diff / Slide Review NO; Basophils Absolute Auto 100 /uL (0-100); Basophils Percent Auto 1.3 % (0-2); Eosinophils Absolute Auto 300 /uL (0-450); Eosinophils Percent Auto 3.9 % (2-4); Hemoglobin 16.6 g/dL (13.5-17.5); Lymphocytes Absolute Auto 2300 /uL (1100-4500); Lymphocytes Percent Auto 28.8 % (25-40); Mean Corpuscular HGB Conc 33.8 % (30-36); Mean Corpuscular Hemoglobin 30.4 PG (26-34); Mean Corpuscular Volume 89.7 fL (80-100); Monocytes Absolute Auto 700 /uL (0-900); Monocytes Percent Auto 8.6 % (3-14); Neutrophils Absolute Auto 4500 /uL (1500-7000); Neutrophils Percent Auto 57.4 % (50-75); Platelet Count 207 X10^3/uL (150-400); Red Blood Cell Count 5.46 X10^6/uL (4.5-5.9); Red Cell Distribution Width 15.1 % (11.6-14.8); White Blood Cell Count 7.8 X10^3/uL (4.5-11.0)
[2024-08-05 19:32] LABS: D Dimer 286 ng/ml (<500)
[2024-08-05 19:40] LABS: Alanine Aminotransferase 35 IU/L (<50); Albumin 4.2 g/dL (3.5-5.0); Albumin Globulin Ratio 1.5 (1.0-2.8); Alkaline Phosphatase 83 U/L (38-126); Aspartate Aminotransferase 36 IU/L (17-59); Bilirubin Total 0.9 mg/dL (0.2-1.3); Blood Urea Nitrogen 20 mg/dL (9-20); Calcium 9.5 mg/dL (8.4-10.2); Carbon Dioxide 24 mmol/L (22-32); Chloride 108 mmol/L (98-107); Cholesterol 151 mg/dL (140-199); Estimated Glomerular Filt Rate 51 mL/min (>60); Globulin 2.8 g/dL (1.7-4.1); Glucose 105 mg/dL (80-110); HDL Cholesterol 48 mg/dL (40-60); HEMOLYSIS 19 (0-50); LDL Cholesterol Calculated 76 mg/dL (<100); Potassium 4.2 mmol/L (3.4-5.1); Sodium 141 mmol/L (137-145); Triglycerides 136 mg/dL (35-150)
== END ==
PROVIDERS: PCP Family Medicine; Visit Provider Family Medicine
DX: I25.810 Atherosclerosis of coronary artery bypass graft(s) without angina pectoris (principal); N18.9 Chronic kidney disease, unspecified; D63.1 Anemia in chronic kidney disease; E78.2 Mixed hyperlipidemia; I10 Essential (primary) hypertension
CPT/HCPCS: 80053; 80061; 85025; 85379

== ENCOUNTER → 2024-08-10 13:40 | Outpatient (CLI) | payer MEDICARE, SELFPAY ==
[2024-08-10 14:57] LABS: Appearance Urine UA CLEAR; Bilirubin Urine UA NEGATIVE (NEGATIVE); Color Urine UA YELLOW; Glucose Urine UA NEGATIVE (Negative); Ketones Urine UA NEGATIVE (NEGATIVE); Leukocyte Esterase Urine UA NEGATIVE (NEGATIVE); Nitrite Urine UA NEGATIVE (Negative); Occult Blood Urine UA NEGATIVE (Negative); Protein Urine UA NEGATIVE (Negative); Specific Gravity Urine UA 1.025 (1.000-1.035); Urobilinogen Urine UA 0.2 E.U./dL (0.2); pH Urine UA 5.5 (4.5-8.0)
[2024-08-10 15:15] LABS: Urine Volume 10mL (spun)
[2024-08-10 15:16] LABS: Bacteria Urine None Seen; Calcium Oxalate Crystals Urine Occasional; Culture Indicated Urine Cult Not Indicated; RBC Urine 1-5/HPF (0-5/HPF); Squamous Epithelial Cell Urine None Seen (0-5/HPF); WBC Urine 1-5/HPF (0-5/HPF)
--- NOTE | 2024-08-11 19:08 | DI.NM.S_ITS ---
DATE OF SERVICE: 08/10/2024 EXERCISE PERFUSION STUDY INDICATION: Syncope with known history of two-vessel bypass surgery in 2020, hypertension. RADIOPHARMACEUTICAL: 26.7 millicuries technetium-99m Myoview IV was injected at stress and 27.5 millicurie technetium-99m Myoview IV was injected at rest. CARDIAC STRESS: The patient underwent exercise perfusion study under the supervision of an attending staff. He walked on Scooter protocol for 6 minutes and 41 seconds, achieved maximum heart rate of 144 which was 100% of target heart rate. Resting blood pressure 140/80 and peak blood pressure 170/92 mmHg. Baseline rhythm was sinus. During stress, nonspecific ST-T changes without any convincing ischemic changes. The patient has frequent PACs without any obvious AFib or ventricular tachycardia. No chest discomfort. Had shortness of breath. Oxygen saturation was more than 95% during exercise. RAW DATA: There is increased subdiaphragmatic activity. GATED STUDY: Resting LV ejection fraction 75% and stress LV ejection fraction 78% without any obvious wall motion abnormalities. Resting end- diastolic volume 115 mL. TID ratio 0.83, which is within normal limits. Lung/heart ratio 0.27, which is within normal limits. MYOCARDIAL PERFUSION SCAN: Stress supine, resting supine, and stress prone images were compared to each other. There is a normal myocardial perfusion. Summed stress score and summed rest score zero. CONCLUSION: This is a normal myocardial perfusion study without any evidence of ischemia or infarction. Summed stress score and summed rest score zero. Fair exercise tolerance. TYE -13%. Normal hemodynamic response. No convincing ischemic EKG changes. Frequent PACs during exercise. No obvious AFib or ventricular tachycardia. Preserved LV function. No angina. Overall, low-risk exercise perfusion study. Dinesh Segal - EUGENIE/kristine/ELIZABETH doc#: [id number]/job#: [id number] dd: 08/11/2024 17:34:00 dt: 08/11/2024 18:35:00 DICTATING MD/COPIES TO: Mai Castañeda MD COPIES MNE: SILVINO;
== END ==
PROVIDERS: PCP Family Medicine; Referring Provider Internal Medicine Cardiovascular Disease; Visit Provider Internal Medicine Cardiovascular Disease
DX: N20.0 Calculus of kidney (principal); R06.02 Shortness of breath
CPT/HCPCS: 78452; 81001; 93017; A9502

== ENCOUNTER → 2024-11-02 10:35 | Outpatient (CLI) | payer MEDICARE, SELFPAY ==
--- NOTE | 2024-11-02 10:37 | DI.CT.S_ITS ---
PROCEDURE: CT ABDOMEN PELVIS W CON INDICATIONS: abdominal pain in a pateint with history renal lithiasis TECHNIQUE: After the administration of intravenous contrast, axial sections acquired from the lung bases to the pubic symphysis. Coronal and sagittal reformats were performed. For radiation dose reduction, the following was used: automated exposure control, adjustment of mA and/or kV according to patient size. COMPARISON: No prior CT for comparison. Comparison can be made to prior [facility] x-ray 03/07/2023. FINDINGS: Image quality: Diagnostic. Lower Chest: No significant findings. ABDOMEN: Dilated bilateral renal pelves and calices most notably in the right inferior calyx some of which may be related to chronic ureteropelvic junction stenosis or obstruction without hydroureter. There is a 7 mm AP by 6 mm transverse by 5 millimeter cc calcification at the right inferior calyx with adjacent right perinephric edema which may be a cause of right-sided pain (Hounsfield units of approximately 1240 average). Moderate hiatal hernia with nonspecific wall thickening of the distal esophagus into the stomach, some of which may be artifact from partial nondistention although esophagitis, gastritis or other process could be considered. Mild cardiomegaly with four-chamber enlargement. Median sternotomy. Calcifications of the coronary arteries. 1 centimeter nodule left lower lobe posterior basal (series 5, image 11) follow-up is needed. Mild calcifications of the aorta and iliac vessels. Moderate diverticulosis of the descending and sigmoid colon with nonspecific wall thickening likely chronic or related to partial nondistention without significant pericolonic edema to suggest acute diverticulitis or colitis. Moderately enlarged prostate gland and seminal vesicles. Moderate degenerative changes lower thoracic upper lumbar spine. Normal nondilated appendix. 3 centimeter right renal cyst. Liver: No solid mass. Gallbladder: Minimal cholelithiasis without CT evidence of cholecystitis. Biliary ducts: No biliary dilation. Pancreas: No ductal dilation. Spleen: Size is within normal limits. Adrenal Glands: No adrenal nodules. Peritoneum: No abnormal intraperitoneal fluid. No free air. Ventral Wall: No significant ventral hernia. Abdominal Nodes: No retroperitoneal or mesenteric adenopathy by size criteria. Vessels: Aorta and inferior vena cava are normal in size. PELVIS: Bladder: No bladder wall thickening, accounting for underdistention. Pelvic Nodes: No enlarged lymph nodes. Miscellaneous: No inguinal hernias are seen. IMPRESSION: Dilated renal pelves bilaterally with calcification right inferior calyx as discussed above. 1 centimeter left lower lobe lung nodule. Follow-up is needed. Nonspecific wall thickening of the distal esophagus and stomach as discussed above. Diverticulosis and nonspecific wall thickening distal descending and sigmoid colon. Other chronic findings as above. Dictated by: Alfie Shafer M.D. on 11/02/2024 at 13:26 Approved by: Alfie Shafer M.D. on 11/02/2024 at 13:40
[2024-11-02 11:02] LABS: Estimated Glomerular Filt Rate 50 mL/min (>60)
== END ==
PROVIDERS: PCP Family Medicine; Referring Provider Family Medicine; Visit Provider Family Medicine
DX: N28.89 Other specified disorders of kidney and ureter (principal); N28.1 Cyst of kidney, acquired; K44.9 Diaphragmatic hernia without obstruction or gangrene; I51.7 Cardiomegaly; R91.1 Solitary pulmonary nodule; I70.0 Atherosclerosis of aorta; K57.30 Diverticulosis of large intestine without perforation or abscess without bleeding; N40.0 Benign prostatic hyperplasia without lower urinary tract symptoms; R10.11 Right upper quadrant pain
CPT/HCPCS: 36415; 74177; 82565; Q9967

== ENCOUNTER → 2025-06-01 11:35 | Outpatient (CLI) | payer MEDICARE, SELFPAY ==
--- NOTE | 2025-06-01 11:36 | DI.CT.S_ITS ---
PROCEDURE: CT CHEST WO CON INDICATIONS: LLL pulmonary nodule follow up TECHNIQUE: Noncontrast 5 mm thick sections acquired from the pulmonary apices to the posterior costophrenic angles. 1 mm lung window, 5 mm thick coronal and sagittal and 7 mm axial MIP reformats were then acquired. For radiation dose reduction, the following was used: automated exposure control, adjustment of mA and/or kV according to patient size. COMPARISON: CT abdomen pelvis 11/02/2024. FINDINGS: Image quality: Diagnostic. Lower Neck: No enlarged lymph nodes. Thyroid: No thyroid nodules which require sonographic follow up, per consensus guidelines. Axillae: No enlarged lymph nodes. Chest Wall: Status post median sternotomy. Bones: Unremarkable. Lungs and Pleura: No pneumothorax or pleural effusions. No consolidation. Multiple scattered solid pulmonary nodules, index nodules as follows: -11 x 8 mm smoothly marginated subpleural nodule in the left lower lobe (3/220, MIP image 113) -7 mm right middle lobe nodule (3/201, MIP image 102) Heart: Heart size is normal. No pericardial effusion. Mild cardiomegaly. Dense coronary artery calcifications/stents. Thoracic Vessels: Aneurysmal dilatation of the ascending aorta measuring 4.2 cm. Dilated main pulmonary artery measuring 3.4 cm Mediastinum and Ana: No enlarged lymph nodes. Esophagus: No wall thickening. Small hiatal hernia. Upper Abdomen: Visualized upper abdomen solid organs and bowel loops appear normal. IMPRESSION: Scattered solid pulmonary nodules with the largest in the left lower lobe measuring 1.1 cm. Recommend follow-up CT chest in 6 months. Small hiatal hernia. Approved by: Jagruti Granger M.D.,Ph.D. on 06/02/2025 at 20:30
[2025-06-01 12:22] LABS: Add Manual Diff / Slide Review NO; Hematocrit 46.8 % (41-53); Hemoglobin 16.0 g/dL (13.5-17.5); Lymphocytes Absolute Auto 2100 /uL (1100-4500); Mean Corpuscular HGB Conc 34.2 % (30-36); Mean Corpuscular Hemoglobin 30.6 PG (26-34); Mean Corpuscular Volume 89.3 fL (80-100); Platelet Count 188 X10^3/uL (150-400)
[2025-06-01 13:09] LABS: Alanine Aminotransferase 29 IU/L (<50); Albumin 4.2 g/dL (3.5-5.0); Albumin Globulin Ratio 1.4 (1.0-2.8); Alkaline Phosphatase 74 U/L (38-126); Blood Urea Nitrogen 19 mg/dL (9-20); Calcium 9.5 mg/dL (8.4-10.2); Carbon Dioxide 23 mmol/L (22-32); Chloride 108 mmol/L (98-107); Cholesterol 131 mg/dL (140-199); Estimated Glomerular Filt Rate 60 mL/min (>60); Globulin 2.9 g/dL (1.7-4.1); Glucose 107 mg/dL (70-99); HDL Cholesterol 51 mg/dL (40-60); HEMOLYSIS < 15 (0-50); Potassium 4.1 mmol/L (3.4-5.1); Sodium 142 mmol/L (137-145); Total Protein 7.1 g/dL (6.3-8.2); Triglycerides 185 mg/dL (35-150)
== END ==
PROVIDERS: PCP Family Medicine; Referring Provider Family Medicine; Visit Provider Family Medicine
DX: R22.2 Localized swelling, mass and lump, trunk (principal); I12.9 Hypertensive chronic kidney disease with stage 1 through stage 4 chronic kidney disease, or unspecified chronic kidney disease; N18.31 Chronic kidney disease, stage 3a; D63.1 Anemia in chronic kidney disease; R91.8 Other nonspecific abnormal finding of lung field; N40.1 Benign prostatic hyperplasia with lower urinary tract symptoms; N13.8 Other obstructive and reflux uropathy; Z12.5 Encounter for screening for malignant neoplasm of prostate; I25.810 Atherosclerosis of coronary artery bypass graft(s) without angina pectoris; E78.2 Mixed hyperlipidemia; R10.11 Right upper quadrant pain; K44.9 Diaphragmatic hernia without obstruction or gangrene; I71.21 Aneurysm of the ascending aorta, without rupture
CPT/HCPCS: 36415; 71250; 80053; 80061; 85025; G0103

== ENCOUNTER → 2025-06-01 13:23 | Outpatient (CLI) | payer MEDICARE, SELFPAY ==
--- NOTE | 2025-06-01 13:25 | DI.CT.S_ITS ---
PROCEDURE: CT ABDOMEN PELVIS WO CON INDICATIONS: lower right pain TECHNIQUE: CT of the abdomen and pelvis was obtained without intravenous contrast. Coronal and sagittal reformats were performed. For radiation dose reduction, the following was used: automated exposure control, adjustment of mA and/or kV according to patient size. COMPARISON: CT abdomen pelvis 11/02/2024, CT chest 06/01/2025. FINDINGS: Image quality: Diagnostic. Lower Chest: Separately dictated ABDOMEN: Liver: No contour-deforming mass. Gallbladder: Layering stones without wall thickening or pericholecystic fluid. Biliary ducts: No biliary dilation. Pancreas: No ductal dilation. Spleen: Size is within normal limits. Adrenal Glands: No adrenal nodules. Kidneys and Ureters: Nonobstructing 10 mm right calculus (HU 1087) and nonobstructing 6 mm left calculus (HU 451). No hydroureteronephrosis. No hydronephrosis. No contour-deforming mass. Stomach and Bowel: Duodenal lipoma, as before. Normal colonic caliber, without significant wall thickening. Extensive sigmoid diverticulosis without acute inflammation. Peritoneum: No abnormal intraperitoneal fluid. No free air. Ventral Wall: No significant hernia. Abdominal Nodes: No retroperitoneal or mesenteric adenopathy by size criteria. Vessels: Aorta and inferior vena cava are normal in size. PELVIS: Pelvic Organs: Prostatomegaly. Bladder: Unremarkable. Pelvic Nodes: No enlarged lymph nodes. Miscellaneous: No inguinal hernias are seen. Bones: No aggressive osseous abnormality. IMPRESSION: Approved by: Jagruti Granger M.D.,Ph.D. on 06/02/2025 at 20:58 Bilateral nonobstructing renal calculi. No hydroureteronephrosis. Incidental duodenal lipoma. Colonic diverticulosis without CT evidence of acute diverticulitis. Additional findings as above.
== END ==
PROVIDERS: PCP Family Medicine; Referring Provider Family Medicine; Visit Provider Physician Assistant Medical
DX: I12.9 Hypertensive chronic kidney disease with stage 1 through stage 4 chronic kidney disease, or unspecified chronic kidney disease (principal); N18.31 Chronic kidney disease, stage 3a; D63.1 Anemia in chronic kidney disease; N28.89 Other specified disorders of kidney and ureter; K80.20 Calculus of gallbladder without cholecystitis without obstruction; R10.11 Right upper quadrant pain; N20.0 Calculus of kidney; D17.5 Benign lipomatous neoplasm of intra-abdominal organs; K57.30 Diverticulosis of large intestine without perforation or abscess without bleeding; R22.2 Localized swelling, mass and lump, trunk; R91.8 Other nonspecific abnormal finding of lung field; N40.1 Benign prostatic hyperplasia with lower urinary tract symptoms; N13.8 Other obstructive and reflux uropathy; I71.21 Aneurysm of the ascending aorta, without rupture; Z12.5 Encounter for screening for malignant neoplasm of prostate; I25.810 Atherosclerosis of coronary artery bypass graft(s) without angina pectoris; E78.2 Mixed hyperlipidemia; K44.9 Diaphragmatic hernia without obstruction or gangrene
CPT/HCPCS: 36415; 71250; 74176; 80053; 80061; 85025; G0103